=== PATIENT | male | born 1990 ===

== ENCOUNTER 2020-01-01 15:53 | Emergency (ER) | payer SELFPAY ==
[2020-01-01] MEDS ORDERED: Sodium Chloride 0.9% 2.5 ML Syringe FLUSH PRN (16:06)
[2020-01-01] MEDS ORDERED: Sodium Chloride 0.9% 10 ML Syringe FLUSH PRN (16:06)
--- NOTE | 2020-01-01 16:06 | EDM.PDOC ---
ED HPI GENERAL MEDICAL PROBLEM - General Chief Complaint: Genitourinary Problem Stated Complaint: KIDNEY STONES Departure - Discharge Information Referrals: PCP,None [Primary Care Provider] -
[2020-01-01] MEDS ORDERED: Ondansetron 4 MG/2 ML SDV IVPUSH ONE (16:33)
[2020-01-01] MEDS ORDERED: Ketorolac 30 MG/ML SDV IVPUSH ONE (16:33)
--- NOTE | 2020-01-01 16:53 | EDM.PDOC ---
ED HPI GENERAL MEDICAL PROBLEM - General Chief Complaint: Genitourinary Problem Stated Complaint: KIDNEY STONES Time Seen by Provider: 01/01/20 16:06 Source of Information: Reports: Patient History Limitations: Reports: No Limitations - History of Present Illness INITIAL COMMENTS - FREE TEXT/NARRATIVE: HISTORY AND PHYSICAL: History of present illness: Patient is a 29-year-old male who presents to the emergency room with complaints of left flank pain that wraps to the right mid abdomen, dysuria and hematuria x2 days. He states he had a kidney stone in 2017 and this discomfort feels similar. He is concerned he may have a kidney stone again. Patient denies any fever, chills, headache, change in vision, syncope or near syncope. Denies any chest pain, back pain, shortness of breath or cough. Denies any abdominal pain, nausea, vomiting, diarrhea, constipation or testicular pain/redness/swelling. He has no concerns of STDs. Has not noted any blood in stool. Patient has been eating and drinking appropriately. Review of systems: As per history of present illness and below otherwise all systems reviewed and negative. Past medical history: As per history of present illness and as reviewed below otherwise noncontributory. Surgical history: As per history of present illness and as reviewed below otherwise noncontributory. Social history: See social history for further information Family history: As per history of present illness and as reviewed below otherwise noncontributory. Physical exam: General: Well developed and well nourished 29-year-old male. Alert and orientated x 3. Nontoxic in appearance and in no acute distress. Vital signs are stable and have been reviewed by me. Nursing notes were reviewed. HEENT: Atraumatic, normocephalic, pupils equal and reactive bilaterally, negative for conjunctival pallor or scleral icterus, mucous membranes moist, TMs normal bilaterally, throat clear, neck supple, nontender, trachea midline. No drooling or trismus noted. No meningeal signs. No hot potato voice noted. Lungs: Clear to auscultation, breath sounds equal bilaterally, chest nontender. Normal work of breathing, no accessory muscles used. Heart: S1S2, regular rate and rhythm without overt murmur Abdomen: Soft, nondistended, nontender. Negative for masses or hepatosplenomegaly. Mild left-sided costovertebral tenderness. Pelvis: Stable nontender. Skin: Intact, warm, dry. No lesions or rashes noted. Hematologic: No petechiae or purpra. Mucosa appropriate color and normal nail bed color and refill. Extremities: Atraumatic, moves all extremities per self without difficulty or deficits, negative for cords or calf pain. Neurovascular unremarkable. Neuro: Awake, alert, oriented. Cranial nerves II through XII unremarkable. Cerebellum unremarkable. Motor and sensory unremarkable throughout. Exam nonfocal. Psychiatric: Mood and affect are appropriate. Normal thought process. Answering questions appropriately. Notes: 6 mm stone in the lower pole of the right kidney. 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 No hydronephrosis noted. CT is otherwise unremarkable. Lab work shows no acute findings. Patient feels improved after medications. I again asked about STD screening and if I could add this on to his labs, he declines. I have spoken with the patient/caregiver and discussed today's findings, in addition to providing specific details for plan of care. Reassessment at the time of disposition demonstrates that the patient is in no acute distress. The patient is stable for discharge, counseling was provided and we discussed in great detail signs and symptoms that would prompt them to return to the Emergency Department. Medication, follow up and supportive care measures were reviewed and discussed. Voices understanding and is agreeable to plan of care. Denies any further questions or concerns at this time. Diagnostics: CBC, CMP, Lipase, UA, CT abd/pelvis Therapeutics: Toradol, Morphine, Zofran, IV fluids Prescription: None Impression: Flank pain, right Plan: 1. Today your lab work and CT are within normal limits, you have kidney stone in the kidney (but as it isn't moving, this shouldn't cause pain). 2. Increase your fluids. Take Tylenol and/or Ibuprofen as needed for pain. 3. We encourage you to follow up with your primary care provider and/or recommended specialist in the next few days for re-evaluation and further care/management. If your symptoms should worsen, new symptoms develop or any of the signs and symptoms we discussed should arise please return to the emergency room or call [phone] (if needed). Definitive disposition and diagnosis as appropriate pending reevaluation and review of above. L flank Pain Score (Numeric/FACES): 7 - Related Data Allergies Allergy/AdvReac Type Severity Reaction Status Date / Time No Known Allergies Allergy Verified 01/01/20 16:45 Home Meds: Home Meds . [No Known Home Meds] 01/01/20 [History] ED ROS GENERAL - Review of Systems Review Of Systems: Comprehensive ROS is negative, except as noted in HPI. ED EXAM, RENAL/ - Physical Exam Exam: See Below (See dictation) Course - Vital Signs Last Recorded V/S: Last Vital Signs Temp 96.9 F 01/01/20 16:31 Pulse 75 01/01/20 16:31 Resp 18 01/01/20 16:31 BP 120/73 01/01/20 16:31 Pulse Ox 97 01/01/20 16:31 - Orders/Labs/Meds Orders: Active Orders 24 hr Category Date Time Status Sodium Chloride 0.9% [Saline Flush] Med 01/01/20 16:06 Active 10 ml FLUSH ASDIRECTED PRN Sodium Chloride 0.9% [Saline Flush] Med 01/01/20 16:06 Active 2.5 ml FLUSH ASDIRECTED PRN Saline Lock Insert [OM.PC] Stat Oth 01/01/20 16:07 Ordered Medication Orders Sodium Chloride (Saline Flush) 10 ml FLUSH ASDIRECTED PRN PRN Reason: Keep Vein Open Sodium Chloride (Saline Flush) 2.5 ml FLUSH ASDIRECTED PRN PRN Reason: Keep Vein Open Labs: Laboratory Tests 01/01/20 01/01/20 01/01/20 Range/Units 16:04 17:14 17:14 WBC 7.90 (4.0-11.0) K/uL RBC 5.36 (4.50-5.90) M/uL Hgb 16.4 (13.0-17.0) g/dL Hct 46.3 (38.0-50.0) % MCV 86.4 (80.0-98.0) fL MCH 30.6 (27.0-32.0) pg MCHC 35.4 (31.0-37.0) g/dL RDW Std Deviation 40.6 (28.0-62.0) fl RDW Coeff of Tony 13 (11.0-15.0) % Plt Count 173 (150-400) K/uL MPV 9.60 (7.40-12.00) fL Neut % (Auto) 58.5 (48.0-80.0) % Lymph % (Auto) 30.4 (16.0-40.0) % [place] % (Auto) 9.0 (0.0-15.0) % Eos % (Auto) 1.5 (0.0-7.0) % Baso % (Auto) 0.6 (0.0-1.5) % Neut # (Auto) 4.6 (1.4-5.7) K/uL Lymph # (Auto) 2.4 (0.6-2.4) K/uL [place] # (Auto) 0.7 (0.0-0.8) K/uL Eos # (Auto) 0.1 (0.0-0.7) K/uL Baso # (Auto) 0.1 (0.0-0.1) K/uL Nucleated RBC % 0.0 /100WBC Nucleated RBCs # 0 K/uL Sodium 136 (136-148) mmol/L Potassium 3.6 (3.5-5.1) mmol/L Chloride 101 (98-107) mmol/L Carbon Dioxide 27.4 (21.0-32.0) mmol/L BUN 13 (7.0-18.0) mg/dL Creatinine 1.0 (0.8-1.3) mg/dL Est Cr Clr Drug Dosing 114.00 mL/min Estimated GFR (MDRD) > 60.0 ml/min Glucose 86 (74-106) mg/dL Calcium 9.0 (8.5-10.1) mg/dL Total Bilirubin 0.4 (0.2-1.0) mg/dL AST 37 (15-37) IU/L ALT 80 H (14-63) IU/L Alkaline Phosphatase 144 H (46-116) U/L Total Protein 7.6 (6.4-8.2) g/dL Albumin 4.5 (3.4-5.0) g/dL Globulin 3.1 (2.6-4.0) g/dL Albumin/Globulin Ratio 1.5 (0.9-1.6) Lipase (73-393) U/L Urine Color YELLOW Urine Appearance CLEAR Urine pH 6.0 (5.0-8.0) Ur Specific [place] 1.025 (1.001-1.035) Urine Protein NEGATIVE (NEGATIVE) mg/dL Urine Glucose (UA) NEGATIVE (NEGATIVE) mg/dL Urine Ketones NEGATIVE (NEGATIVE) mg/dL Urine Occult Blood NEGATIVE (NEGATIVE) Urine Nitrite NEGATIVE (NEGATIVE) Urine Bilirubin NEGATIVE (NEGATIVE) Urine Urobilinogen 0.2 (<2.0) EU/dL Ur Leukocyte Esterase NEGATIVE (NEGATIVE) 01/01/20 Range/Units 17:14 WBC (4.0-11.0) K/uL RBC (4.50-5.90) M/uL Hgb (13.0-17.0) g/dL Hct (38.0-50.0) % MCV (80.0-98.0) fL MCH (27.0-32.0) pg MCHC (31.0-37.0) g/dL RDW Std Deviation (28.0-62.0) fl RDW Coeff of Tony (11.0-15.0) % Plt Count (150-400) K/uL MPV (7.40-12.00) fL Neut % (Auto) (48.0-80.0) % Lymph % (Auto) (16.0-40.0) % [place] % (Auto) (0.0-15.0) % Eos % (Auto) (0.0-7.0) % Baso % (Auto) (0.0-1.5) % Neut # (Auto) (1.4-5.7) K/uL Lymph # (Auto) (0.6-2.4) K/uL [place] # (Auto) (0.0-0.8) K/uL Eos # (Auto) (0.0-0.7) K/uL Baso # (Auto) (0.0-0.1) K/uL Nucleated RBC % /100WBC Nucleated RBCs # K/uL Sodium (136-148) mmol/L Potassium (3.5-5.1) mmol/L Chloride (98-107) mmol/L Carbon Dioxide (21.0-32.0) mmol/L BUN (7.0-18.0) mg/dL Creatinine (0.8-1.3) mg/dL Est Cr Clr Drug Dosing mL/min Estimated GFR (MDRD) ml/min Glucose (74-106) mg/dL Calcium (8.5-10.1) mg/dL Total Bilirubin (0.2-1.0) mg/dL AST (15-37) IU/L ALT (14-63) IU/L Alkaline Phosphatase (46-116) U/L Total Protein (6.4-8.2) g/dL Albumin (3.4-5.0) g/dL Globulin (2.6-4.0) g/dL Albumin/Globulin Ratio (0.9-1.6) Lipase 101 (73-393) U/L Urine Color Urine Appearance Urine pH (5.0-8.0) Ur Specific [place] (1.001-1.035) Urine Protein (NEGATIVE) mg/dL Urine Glucose (UA) (NEGATIVE) mg/dL Urine Ketones (NEGATIVE) mg/dL Urine Occult Blood (NEGATIVE) Urine Nitrite (NEGATIVE) Urine Bilirubin (NEGATIVE) Urine Urobilinogen (<2.0) EU/dL Ur Leukocyte Esterase (NEGATIVE) Meds: Medications Generic Name Dose Route Start Last Admin Trade Name Freq PRN Reason Stop Dose Admin Sodium Chloride 10 ml 01/01/20 16:06 Saline Flush FLUSH ASDIRECTED PRN Keep Vein Open Sodium Chloride 2.5 ml 01/01/20 16:06 Saline Flush FLUSH ASDIRECTED PRN Keep Vein Open Discontinued Medications Generic Name Dose Route Start Last Admin Trade Name Freq PRN Reason Stop Dose Admin Ketorolac Tromethamine 30 mg 01/01/20 16:33 01/01/20 17:19 Toradol IVPUSH 01/01/20 16:34 30 mg ONETIME ONE Administration Morphine Sulfate 4 mg 01/01/20 18:02 Morphine IVPUSH 01/01/20 18:03 ONETIME ONE Ondansetron HCl 4 mg 01/01/20 16:33 01/01/20 17:17 Zofran IVPUSH 01/01/20 16:34 4 mg ONETIME ONE Administration Departure - Departure Time of Disposition: 18:03 Disposition: Home, Self-Care 01 Clinical Impression: Flank pain - Discharge Information Instructions: Flank Pain, Adult Referrals: PCP,None [Primary Care Provider] - Forms: ED Department Discharge Additional Instructions: The following information is given to patients seen in the emergency department who are being discharged to home. This information is to outline your options for follow-up care. We provide all patients seen in our emergency department with a follow-up referral. The need for follow-up, as well as the timing and circumstances, are variable depending upon the specifics of your emergency department visit. If you don't have a primary care physician on staff, we will provide you with a referral. We always advise you to contact your personal physician following an emergency department visit to inform them of the circumstance of the visit and for follow-up with them and/or the need for any referrals to a consulting specialist. The emergency department will also refer you to a specialist when appropriate. This referral assures that you have the opportunity for follow-up care with a specialist. All of these measure are taken in an effort to provide you with optimal care, which includes your follow-up. Under all circumstances we always encourage you to contact your private physician who remains a resource for coordinating your care. When calling for follow-up care, please make the office aware that this follow-up is from your recent emergency room visit. If for any reason you are refused follow-up, please contact the [facility] Emergency Department at and asked to speak to the emergency department charge nurse. [facility] [address] [place] [address] [place] [address] Thank you for choosing the [facility] emergency department in [place] for your medical needs today. It was a pleasure caring for you. Today you were seen in the emergency department for flank pain. 1. Today your lab work and CT are within normal limits, you have kidney stone in the kidney (but it's in the right and as it isn't moving, this shouldn't cause pain). 2. Increase your fluids. Take Tylenol and/or Ibuprofen as needed for pain. 3. We encourage you to follow up with your primary care provider and/or recommended specialist in the next few days for re-evaluation and further care/management. If your symptoms should worsen, new symptoms develop or any of the signs and symptoms we discussed should arise please return to the emergency room or call [phone] (if needed). Sepsis Event Note (ED) - Evaluation Sepsis Screening Result: No Definite Risk - Focused Exam Vital Signs: Vital Signs Temp Pulse Resp BP Pulse Ox 01/01/20 16:31 96.9 F 75 18 120/73 97
--- NOTE | 2020-01-01 17:14 | CT ---
INDICATION: Left flank and abdominal pain. TECHNIQUE: CT abdomen and pelvis without contrast. COMPARISON: None FINDINGS: Lower chest: No acute abnormality. Liver: Unremarkable. Spleen: Unremarkable. Pancreas: Unremarkable. Gallbladder and bile ducts: Unremarkable. Kidneys: 6 mm calculus in the lower pole of the right kidney. There appears to be a duplicated collecting system on the right with ureters emerging just beyond the ureteropelvic junction. No right ureteral calculus. Likely duplicated collecting system on the left as well. No left-sided calculi. No hydronephrosis in either kidney. No focal renal lesion. Adrenal glands: Unremarkable. GI tract: No acute bowel abnormality. Appendix is normal. Vascular structures: No abdominal aortic aneurysm. Lymph nodes: Unremarkable. Miscellaneous: No free air or ascites. Tiny fat containing umbilical hernia. Small fat containing left inguinal hernia. Pelvic Organs: There are calcifications in the prostate. No bladder wall thickening. Bones: No acute abnormality. No suspicious bone lesion. IMPRESSION: 1. No acute abnormality in the abdomen or pelvis to explain patient`s symptomatology. 2. Nonobstructing right nephrolithiasis. 3. 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 Dictated by Aris Rosario MD @ 01/01/2020 5:13:14 PM Please note that all CT scans at this facility use dose modulation, iterative reconstruction, and/or weight-based dosing when appropriate to reduce radiation dose to as low as reasonably achievable. Dictated by: Aris Rosario MD @ 01/01/2020 17:13:24 (Electronically Signed)
[2020-01-01 17:50] LABS: BLOOD UREA NITROGEN,BUN 13 mg/dL (7.0-18.0); CARBON DIOXIDE,CO2 27.4 mmol/L (21.0-32.0); CHLORIDE,CL 101 mmol/L (98-107); GLUCOSE RANDOM 86 mg/dL (74-106); POTASSIUM,K 3.6 mmol/L (3.5-5.1); SODIUM,NA 136 mmol/L (136-148)
[2020-01-01] MEDS ORDERED: Morphine 4 MG/ML Syringe IVPUSH ONE (18:02)
== END 2020-01-01 18:36 | disposition home or self-care (01) ==
LOC: MW.ED 15:53
DX: R10.9 Unspecified abdominal pain (principal); R31.9 Hematuria, unspecified; R30.0 Dysuria
CPT/HCPCS: 36415; 74176; 80053; 81003; 83690; 85025; 96374; 96375; 99284; J1885; J2270; J2405; 99283

== ENCOUNTER 2020-03-08 09:10 | Day surgery (SDC) | payer BC ==
[~2020-03-08 09:10] MED LIST: Lactated Ringers 1,000 ML IV SCH; Midazolam 1 MG/ML 2 ML SDV ONE; Propofol 200 MG/20 ML SDV ONE; ceFAZolin 2 GM in Premix Bag 1 BAG IV ONE; fentaNYL 100 MCG/2 ML SDV ONE
[2020-03-08] MEDS ORDERED: Iopamidol 408 MG/ML 20 ML SDV ONE (09:11)
--- NOTE | 2020-03-08 09:50 | PCM.PREANE ---
Preanesthetic Assessment - Anesthesia/Transfusion/Family Hx Anesthesia History: Prior Anesthesia Without Reaction Family History of Anesthesia Reaction: No Transfusion History: No Prior Transfusion(s) Intubation History: Unknown - Review of Systems General: No Symptoms Pulmonary: No Symptoms Cardiovascular: No Symptoms Gastrointestinal: No Symptoms Neurological: No Symptoms Other: Reports: None - Physical Assessment Height: 5 ft 11 in Weight: 97.976 kg ASA Class: 2 Mental Status: Alert & Oriented x3 Airway Class: Mallampati = 1 Dentition: Reports: Normal Dentition Thyro-Mental Finger Breadths: 3 Mouth Opening Finger Breadths: 3 ROM/Head Extension: Full Lungs: Clear to Auscultation, Normal Respiratory Effort Cardiovascular: Regular Rate, Regular Rhythm - Lab Values: Laboratory Last Values SARS-CoV-2 RNA ([place]) NEGATIVE (NEGATIVE) 03/08/20 07:45 - Allergies Allergies/Adverse Reactions: Allergies Allergy/AdvReac Type Severity Reaction Status Date / Time No Known Allergies Allergy Verified 03/08/20 07:35 - Blood Blood Available: No - Anesthesia Plan Pre-Op Medication Ordered: None - Acknowledgements Anesthesia Type Planned: General Anesthesia Pt an Appropriate Candidate for the Planned Anesthesia: Yes Alternatives and Risks of Anesthesia Discussed w Pt/Guardian: Yes Pt/Guardian Understands and Agrees with Anesthesia Plan: Yes PreAnesthesia Questionnaire HEENT History: Reports: None Cardiovascular History: Reports: None Respiratory History: Reports: None Gastrointestinal History: Reports: GERD Genitourinary History: Reports: Renal Calculus Musculoskeletal History: Reports: Fracture Other Musculoskeletal History: hx fx arms, back, knee, hands and tailbone Neurological History: Reports: None Psychiatric History: Reports: None Endocrine/Metabolic History: Reports: Obesity/BMI 30+ (bmi 30.1) Hematologic History: Reports: None Immunologic History: Reports: None Oncologic (Cancer) History: Reports: None Dermatologic History: Reports: None - Past Surgical History Head Surgeries/Procedures: Reports: None HEENT Surgical History: Reports: Tonsillectomy Cardiovascular Surgical History: Reports: None Respiratory Surgical History: Reports: None GI Surgical History: Reports: None Male Surgical History: Reports: Kidney Stone Extraction Endocrine Surgical History: Reports: None Neurological Surgical History: Reports: None Musculoskeletal Surgical History: Reports: None Oncologic Surgical History: Reports: None Dermatological Surgical History: Reports: None - SUBSTANCE USE Tobacco Use Within Last Twelve Months: Smokeless Tobacco - HOME MEDS Home Medications: Home Meds Hydrocodone/Acetaminophen [Hydrocodone-Acetamin 7.5-325] 1 tab PO ASDIRECTED PRN 03/08/20 [History] Omeprazole 20 mg PO DAILY 03/08/20 [History] Tamsulosin HCl [Flomax] 0.4 mg PO ASDIRECTED 03/08/20 [History] - CURRENT (IN HOUSE) MEDS Current Meds: Current Medications Lactated Ringer's (Ringers, Lactated) 1,000 mls @ 100 mls/hr IV ASDIRECTED JOSÉ LUIS Discontinued Medications Fentanyl (Sublimaze) Confirm Administered Dose 100 mcg .ROUTE .STK-MED ONE Stop: 03/08/20 07:32 Cefazolin Sodium/Dextrose 2 gm (/ Premix) 50 mls @ 100 mls/hr IV ONCALL ONE Stop: 03/08/20 06:29 Acetaminophen (Ofirmev) Confirm Administered Dose 100 mls @ as directed .ROUTE .STK-MED ONE Stop: 03/08/20 09:12 Iopamidol (Isovue-M 200 (41%)) Confirm Administered Dose 20 ml .ROUTE .STK-MED ONE Stop: 03/08/20 09:12 Lidocaine HCl (Xylocaine-Mpf 1%) Confirm Administered Dose 5 ml .ROUTE .STK-MED ONE Stop: 03/08/20 07:32 Midazolam HCl (Versed 1 Mg/Ml) Confirm Administered Dose 2 mg .ROUTE .STK-MED ONE Stop: 03/08/20 07:32 Propofol (Diprivan 20 Ml) Confirm Administered Dose 200 mg .ROUTE .STK-MED ONE Stop: 03/08/20 07:32
[2020-03-08] MEDS ORDERED: Ondansetron 4 MG/2 ML SDV ONE (10:36)
[2020-03-08] MEDS ORDERED: Dexamethasone 4 MG/ML 5 ML MDV ONE (10:36)
[2020-03-08] MEDS ORDERED: fentaNYL 100 MCG/2 ML SDV ONE (10:43)
[2020-03-08] MEDS ORDERED: 50% Dextrose in Water 50 ML Syringe IVPUSH PRN (10:46)
[2020-03-08] MEDS ORDERED: HYDROmorphone 2 MG/ML Syringe IVPUSH PRN (10:46)
[2020-03-08] MEDS ORDERED: EPINEPHrine 1:10,000 1 MG/10 ML Syringe IVPUSH PRN (10:46)
[2020-03-08] MEDS ORDERED: Atropine 0.1 MG/ML 10 ML Syringe IVPUSH PRN ×2 (10:46)
[2020-03-08] MEDS ORDERED: Albuterol 0.083% 2.5 MG/3 ML Neb Soln NEB PRN (10:46)
[2020-03-08] MEDS ORDERED: Ondansetron 4 MG/2 ML SDV IVPUSH PRN (10:46)
[2020-03-08] MEDS ORDERED: Naloxone 0.4 MG/ML Syringe IVPUSH PRN (10:46)
[2020-03-08] MEDS ORDERED: Ketorolac 30 MG/ML SDV ONE (10:49)
[2020-03-08] MEDS: fentaNYL 100 MCG/2 ML SDV IVPUSH PRN ×2 (11:23→11:29)
--- NOTE | 2020-03-08 11:52 | PCM.POSTAN ---
POST ANESTHESIA ASSESSMENT - MENTAL STATUS Mental Status: Alert, Oriented - VITAL SIGNS Vital Signs: Last Vital Signs Temp 36.4 C 03/08/20 11:05 Pulse 60 03/08/20 11:36 Resp 23 H 03/08/20 11:36 BP 116/72 03/08/20 11:36 Pulse Ox 96 03/08/20 11:36 - RESPIRATORY Respiratory Status: Respiratory Rate WNL, Airway Patent, O2 Saturation Stable - CARDIOVASCULAR CV Status: Pulse Rate WNL, Blood Pressure Stable - GASTROINTESTINAL GI Status: No Symptoms - PAIN Pain Score: 5 - POST OP HYDRATION Hydration Status: Adequate & Stable - OBSERVATIONS Free Text/Narrative:: No anesthesia problems
[2020-03-08] MEDS ORDERED: oxyCODONE 5 MG Tab PO ONE (12:09)
[2020-03-08] MEDS ORDERED: oxyCODONE 5 MG Tab ONE (12:13)
[2020-03-08] MEDS ORDERED: Acetaminophen/HYDROcodone 325-7.5 MG Tab PO PRN (12:17)
[2020-03-08] MEDS ORDERED: Tamsulosin 0.4 MG Cap.ER PO SCH (12:30)
[2020-03-08] MEDS ORDERED: Belladonna Alkaloids/Opium 16.2-30 MG Supp RECTAL ONE (12:48)
--- NOTE | 2020-03-08 13:29 | PCM48HPAN ---
Post Anesthesia Note - EVALUATION WITHIN 48HRS OF ANESTHETIC Vital Signs in Normal Range: Yes Patient Participated in Evaluation: Yes Respiratory Function Stable: Yes Airway Patent: Yes Cardiovascular Function Stable: Yes Hydration Status Stable: Yes Pain Control Satisfactory: Yes Nausea and Vomiting Control Satisfactory: Yes Mental Status Recovered: Yes Vital Signs: Last Vital Signs Temp 36.4 C 03/08/20 11:05 Pulse 60 03/08/20 11:36 Resp 23 H 03/08/20 11:36 BP 116/72 03/08/20 11:36 Pulse Ox 96 03/08/20 11:36 - COMMENTS/OBSERVATIONS Free Text/Narrative:: No anesthesia problems
--- NOTE | 2020-03-08 13:38 | OR ---
SURGEON: Danika Roy M.D. DATE OF PROCEDURE: 03/08/2020 PREOPERATIVE DIAGNOSIS: Right ureteral and/or ureteropelvic junction stone, 7 mm, with obstruction. POSTOPERATIVE DIAGNOSIS: Right ureteral and/or ureteropelvic junction stone, 7 mm, with obstruction. OPERATIONS: 1. Cystoscopy. 2. Double-J stent placement. DESCRIPTION OF OPERATION: The patient was given general anesthesia. He was placed in dorsal lithotomy position and prepped and draped in sterile drapes. Cystourethroscopy was done that was normal. A guidewire was introduced in the right ureter all the way up into the renal pelvis over which a 6-[place] 26 centimeter double-J stent was placed. Position was confirmed on fluoroscopy. The bladder was emptied, and the patient was moved to the recovery room in good condition. The hydronephrotic drip did not start until the stent was in the renal pelvis, which would indicate that the obstruction is just below the UPJ. ALEJANDRO / ALICIA /[id number]
--- NOTE | 2020-03-08 19:37 | CR ---
Indication: Cystoscopy with stent placement. Technique: 22.4 seconds of intraoperative fluoroscopy was provided. A single intraoperative image of the right abdomen was obtained. Comparison: CT scan dated March 02, 2020. Findings: The single image demonstrates the proximal end of a right ureteral stent. Impression: Intraoperative image. Dictated by Crystal Gan MD @ Mar 08 2020 7:35PM Signed by Dr. Crystal Gan @ Mar 08 2020 7:35PM
[2020-03-09] MEDS ORDERED: Omeprazole 20 MG Cap.CR PO SCH (07:30)
== END 2020-03-08 13:35 | disposition home or self-care (01) ==
LOC: MW.SDS 09:10
PROVIDERS: ATTEND Urology
DX: N20.1 Calculus of ureter (principal); Z83.3 Family history of diabetes mellitus; E66.9 Obesity, unspecified; Z01.812 Encounter for preprocedural laboratory examination; Z20.828 Contact with and (suspected) exposure to other viral communicable diseases; Z68.30 Body mass index [BMI] 30.0-30.9, adult; Z87.442 Personal history of urinary calculi; Z72.0 Tobacco use; Z98.890 Other specified postprocedural states
CPT/HCPCS: 52332; 76000; 87635; A9270; C1769; C2617; J0131; J1100; J1885; J2001; J2250; J2704; J3010; J7120; 00910; J2405; Q9966; U0002

== ENCOUNTER 2020-04-06 07:16 | Day surgery (SDC) | payer BC ==
[~2020-04-06 07:16] MED LIST changes: +Lidocaine 2% 5 ML SDV ONE; +Ondansetron 4 MG/2 ML SDV ONE; -ceFAZolin 2 GM in Premix Bag 1 BAG IV ONE; -fentaNYL 100 MCG/2 ML SDV ONE; +fentaNYL 250 MCG/5 ML SDV ONE
[2020-04-06] MEDS ORDERED: Iopamidol 408 MG/ML 20 ML SDV ONE ×2 (07:43→09:12)
--- NOTE | 2020-04-06 08:01 | PCM.PREANE ---
Preanesthetic Assessment - Anesthesia/Transfusion/Family Hx Anesthesia History: Prior Anesthesia Without Reaction Family History of Anesthesia Reaction: No Transfusion History: No Prior Transfusion(s) Intubation History: Unknown - Review of Systems General: No Symptoms Pulmonary: No Symptoms Cardiovascular: No Symptoms Gastrointestinal: No Symptoms Neurological: No Symptoms Other: Reports: None - Physical Assessment NPO Status Date: 04/05/20 Height: 5 ft 11 in Weight: 97.976 kg ASA Class: 2 Mental Status: Alert & Oriented x3 Airway Class: Mallampati = 2 Dentition: Reports: Normal Dentition ROM/Head Extension: Full Lungs: Clear to Auscultation, Normal Respiratory Effort Cardiovascular: Regular Rate, Regular Rhythm - Allergies Allergies/Adverse Reactions: Allergies Allergy/AdvReac Type Severity Reaction Status Date / Time No Known Allergies Allergy Verified 04/03/20 09:24 - Acknowledgements Anesthesia Type Planned: General Anesthesia Pt an Appropriate Candidate for the Planned Anesthesia: Yes Alternatives and Risks of Anesthesia Discussed w Pt/Guardian: Yes Pt/Guardian Understands and Agrees with Anesthesia Plan: Yes PreAnesthesia Questionnaire HEENT History: Reports: None Cardiovascular History: Reports: None Respiratory History: Reports: None Gastrointestinal History: Reports: GERD Genitourinary History: Reports: Renal Calculus Musculoskeletal History: Reports: Fracture Other Musculoskeletal History: hx fx arms, back, knee, hands and tailbone Neurological History: Reports: None Psychiatric History: Reports: None Endocrine/Metabolic History: Reports: Obesity/BMI 30+ Hematologic History: Reports: None Immunologic History: Reports: None Oncologic (Cancer) History: Reports: None Dermatologic History: Reports: None - Infectious Disease History Infectious Disease History: Reports: Chicken Pox Other Infectious Disease History: when a child - Past Surgical History Head Surgeries/Procedures: Reports: None HEENT Surgical History: Reports: Tonsillectomy Cardiovascular Surgical History: Reports: None Respiratory Surgical History: Reports: None GI Surgical History: Reports: None Other Female Surgeries/Procedures: ureteral stent placement 2019 Male Surgical History: Reports: Kidney Stone Extraction Endocrine Surgical History: Reports: None Neurological Surgical History: Reports: None Musculoskeletal Surgical History: Reports: None Oncologic Surgical History: Reports: None Dermatological Surgical History: Reports: None - SUBSTANCE USE Tobacco Use Status *Q: Former Tobacco User Tobacco Use Within Last Twelve Months: Snuff/Dip - HOME MEDS Home Medications: Home Meds Omeprazole 20 mg PO ASDIRECTED PRN 03/08/20 [History] - CURRENT (IN HOUSE) MEDS Current Meds: Current Medications Lactated Ringer's (Ringers, Lactated) 1,000 mls @ 125 mls/hr IV ASDIRECTED JOSÉ LUIS Discontinued Medications Fentanyl (Sublimaze) Confirm Administered Dose 250 mcg .ROUTE .STK-MED ONE Stop: 04/06/20 07:14 Iopamidol (Isovue-M 200 (41%)) Confirm Administered Dose 20 ml .ROUTE .STK-MED ONE Stop: 04/06/20 07:44 Lidocaine (Xylocaine-Mpf 2%) Confirm Administered Dose 5 ml .ROUTE .STK-MED ONE Stop: 04/06/20 07:14 Midazolam HCl (Versed 1 Mg/Ml) Confirm Administered Dose 2 mg .ROUTE .STK-MED ONE Stop: 04/06/20 07:14 Ondansetron HCl (Zofran) Confirm Administered Dose 4 mg .ROUTE .STK-MED ONE Stop: 04/06/20 07:14 Propofol (Diprivan 20 Ml) Confirm Administered Dose 200 mg .ROUTE .STK-MED ONE Stop: 04/06/20 07:14
[2020-04-06] MEDS ORDERED: Sodium Chloride 0.9% 20 ML ONE (08:16)
[2020-04-06] MEDS ORDERED: ceFAZolin 1 GM Vial ONE ×2 (08:16)
[2020-04-06] MEDS ORDERED: Glycopyrrolate 0.2 MG/ML SDV ONE ×2 (08:17→08:30)
[2020-04-06] MEDS ORDERED: 50% Dextrose in Water 50 ML Syringe IVPUSH PRN (08:48)
[2020-04-06] MEDS ORDERED: Atropine 0.1 MG/ML 10 ML Syringe IVPUSH PRN ×2 (08:48)
[2020-04-06] MEDS ORDERED: Albuterol 0.083% 2.5 MG/3 ML Neb Soln NEB PRN (08:48)
[2020-04-06] MEDS ORDERED: EPINEPHrine 1:10,000 1 MG/10 ML Syringe IVPUSH PRN (08:48)
[2020-04-06] MEDS ORDERED: fentaNYL 100 MCG/2 ML SDV IVPUSH PRN (08:48)
[2020-04-06] MEDS ORDERED: Naloxone 0.4 MG/ML Syringe IVPUSH PRN (08:48)
[2020-04-06] MEDS ORDERED: Omeprazole 20 MG Cap.CR PO PRN (09:24)
[2020-04-06] MEDS ORDERED: Acetaminophen 1,000 MG in Premix Bag 1 BAG IV ONE (10:10)
[2020-04-06] MEDS ORDERED: oxyCODONE 5 MG Tab PO ONE (10:35)
--- NOTE | 2020-04-06 11:15 | PCM48HPAN ---
Post Anesthesia Note - EVALUATION WITHIN 48HRS OF ANESTHETIC Vital Signs in Normal Range: Yes Patient Participated in Evaluation: Yes Respiratory Function Stable: Yes Airway Patent: Yes Cardiovascular Function Stable: Yes Hydration Status Stable: Yes Pain Control Satisfactory: Yes Nausea and Vomiting Control Satisfactory: Yes Mental Status Recovered: Yes Vital Signs: Last Vital Signs Temp 97.9 F 04/06/20 07:45 Pulse 84 04/06/20 09:54 Resp 16 04/06/20 09:54 BP 115/66 04/06/20 09:54 Pulse Ox 95 04/06/20 09:54
--- NOTE | 2020-04-06 11:15 | PCM.POSTAN ---
POST ANESTHESIA ASSESSMENT - MENTAL STATUS Mental Status: Alert, Oriented - VITAL SIGNS Vital Signs: Last Vital Signs Temp 97.9 F 04/06/20 07:45 Pulse 84 04/06/20 09:54 Resp 16 04/06/20 09:54 BP 115/66 04/06/20 09:54 Pulse Ox 95 04/06/20 09:54 - RESPIRATORY Respiratory Status: Respiratory Rate WNL, Airway Patent, O2 Saturation Stable - CARDIOVASCULAR CV Status: Pulse Rate WNL, Blood Pressure Stable - GASTROINTESTINAL GI Status: No Symptoms - POST OP HYDRATION Hydration Status: Adequate & Stable
--- NOTE | 2020-04-06 12:21 | OR ---
SURGEON: Danika Roy M.D. DATE OF PROCEDURE: 04/06/2020 PREOPERATIVE DIAGNOSIS: Right upper ureteral stone. POSTOPERATIVE DIAGNOSIS: Right upper ureteral stone. OPERATION: Extracorporeal shock wave lithotripsy plus cystoscopy, double-J stent removal, and right retrograde pyelogram. DESCRIPTION OF PROCEDURE: The patient was given general anesthesia. He is on the lithotripsy table. The position of the patient was adjusted, so the stone could be treated and eventually received a total of 2500 shocks. At the end of the treatment, the shadow of the stone, which was light to start with, disappeared. The patient was then placed in dorsal lithotomy position. Cystoscopy was done. The double- J stent was removed and a right retrograde pyelogram was done and that did not show any filling defects. With that done, the procedure was terminated. The bladder was emptied, and the patient was moved to recovery room in good condition. PLAN: I will see him next week to make sure he is pain-free, and if we need to, we might have to do a CT scan. ALEJANDRO / ALICIA /[id number]
== END 2020-04-06 11:09 | disposition home or self-care (01) ==
LOC: MW.SDS 07:16
PROVIDERS: ATTEND Urology
DX: N20.1 Calculus of ureter (principal); R79.89 Other specified abnormal findings of blood chemistry; K21.9 Gastro-esophageal reflux disease without esophagitis; E66.9 Obesity, unspecified; Z98.890 Other specified postprocedural states; Z68.30 Body mass index [BMI] 30.0-30.9, adult; Z87.891 Personal history of nicotine dependence
CPT/HCPCS: A9270-GY; J0131; J0690; J2001; J2250; J2405; J2704; J3010; J3490; J7120; Q9966